=== PATIENT | male | born 1965 | race Caucasian/White ===

== ENCOUNTER 2024-01-03 15:05 | Emergency (ER) | payer BC ==
[2024-01-03] MEDS: Take Home: Lidocaine 2% Viscous Solution 15 ML UD, 2 Cup Pack PO ONE (15:45)
[2024-01-03] MEDS: Amoxicillin/Clavulanate K 875-125 MG Tab PO ONE (15:45)
== END 2024-01-03 15:42 | disposition home or self-care (01) ==
LOC: DL.ED 15:05
DX: K04.7 Periapical abscess without sinus (principal); K02.9 Dental caries, unspecified
CPT/HCPCS: 99282; 99283; A9270